=== PATIENT | male | born 1950 | race Caucasian/White ===

== ENCOUNTER → 2018-07-12 | Outpatient (CLI) | payer OTHER ==
[~2018-07-12] MED LIST: ATOR10 PO; ATOR20 PO; Amiodarone HCl200 MG PO; Aspirin EC81 MG PO; Augmentin 875-1 EACH PO; Bactrim Ds Tab1 EACH PO; CEPH250A PO; Cipro500 MG PO; FISH1000 PO; HYDR1TAB94 PO; INSLI100I SC; INSU100I6; INSULANPEN; INSULANPEN SC; LISI5 PO; LOSA50 PO; METF500 PO; METF500C PO; NEBI10 PO; NEBI5 PO; OMEP40CA12 PO; ROXICODONE5 MG PO; TADA10TA PO; XARELTO20 MG PO; ZOLP10 PO
== END | disposition home or self-care (01) ==
LOC: LAB 11:06 → LAB SHORT 11:06
DX: E11.9 Type 2 diabetes mellitus without complications (principal)
CPT/HCPCS: 82043

== ENCOUNTER 2020-07-08 16:16 | Emergency (ER) | payer MEDICARE ==
[~2020-07-08] VITALS: Ht 175.3 cm; Wt 82.5 kg
[2020-07-08] MEDS ORDERED: LIDO700A20 TOP (21:04)
== END 2020-07-08 21:13 | disposition home or self-care (01) ==
LOC: ER 16:16
DX: M79.605 Pain in left leg (principal); M25.552 Pain in left hip; E11.9 Type 2 diabetes mellitus without complications; I10 Essential (primary) hypertension; I48.91 Unspecified atrial fibrillation; Z79.4 Long term (current) use of insulin; Z79.01 Long term (current) use of anticoagulants; Z95.0 Presence of cardiac pacemaker; Z79.899 Other long term (current) drug therapy; W10.9XXA Fall (on) (from) unspecified stairs and steps, initial encounter
CPT/HCPCS: 73502; 93971; 99284-25; A9270

== ENCOUNTER 2024-01-24 14:06 | Emergency (ER) | payer OTHER, MEDICARE ==
[~2024-01-24] VITALS: Ht 175.3 cm; Wt 76.2 kg
[~2024-01-24 14:06] MED LIST changes: +AMIODARONE HCL100 M3 PO; +AZIT500 PO; +BETA.05TCA TOP; +CEFP200 PO; +COLCRYS0.6 M1 PO; +HUMALOG KW100 UNIT/1 SC; -INSLI100I SC; +LIDO700A20 TOP; +OMEP20ER PO; +ROSUVASTATIN CA20 MG PO; +TRULICITY1.5 MG/0.1 SC; +VISBIOME 112.51 EACH PO; +ZOLP5 PO
[2024-01-24 14:54] VITALS: BP 119/66
== END 2024-01-24 17:43 | disposition home or self-care (01) ==
LOC: ER 14:06
DX: S86.811A Strain of other muscle(s) and tendon(s) at lower leg level, right leg, initial encounter (principal); S80.01XA Contusion of right knee, initial encounter; E11.9 Type 2 diabetes mellitus without complications; I10 Essential (primary) hypertension; I48.91 Unspecified atrial fibrillation; Z95.0 Presence of cardiac pacemaker; Z79.4 Long term (current) use of insulin; Z79.85 Long-term (current) use of injectable non-insulin antidiabetic drugs; Z79.01 Long term (current) use of anticoagulants; Z79.899 Other long term (current) drug therapy; V48.4XXA Person boarding or alighting a car injured in noncollision transport accident, initial encounter
CPT/HCPCS: 73562-RT; 99283-25